=== PATIENT | male | born 1935 | race Caucasian/White ===

== ENCOUNTER 2019-09-30 06:35 | Day surgery (SDC) | payer OTHER ==
[2019-09-27 09:41] LABS: BASOPHILS % (AUTO) 0.8 % (0-1); EOSINOPHILS # (AUTO) 0.3 X10'3 (0-0.9); EOSINOPHILS % (AUTO) 4.6 % (0-6); LYMPHOCYTES # (AUTO) 1.1 X10'3 (1.1-4.8); LYMPHOCYTES % (AUTO) 19.8 % (21-51); MEAN CORPUSCULAR HEMOGLOBIN 31.8 PG (27.0-31.0); MEAN CORPUSCULAR HGB CONC 33.9 g/dL (33.0-36.5); MEAN CORPUSCULAR VOLUME 93.6 FL (78-98); MEAN PLATELET VOLUME 7.5 FL (7.4-10.4); MONOCYTES # (AUTO) 0.7 X10'3 (0-0.9); MONOCYTES % (AUTO) 11.6 % (2-12); NEUTROPHILS # (AUTO) 3.6 X10'3 (1.8-7.7); NEUTROPHILS % (AUTO) 63.2 % (42-75); PRE OP HEMATOCRIT 46.8 % (42.0-52.0); PRE OP HEMOGLOBIN 15.9 g/dL (14.0-17.9); PRE OP PLATELET COUNT 234 X10'3 (140-440); RED CELL DISTRIBUTION WIDTH 13.6 % (11.5-14.5)
[2019-09-27 09:56] LABS: ALBUMIN 3.6 G/DL (3.4-5.0); ALKALINE PHOSPHATASE 92 IU/L (46-116); BLOOD UREA NITROGEN 18 MG/DL (7-18); BUN/CREATININE RATIO 16.4 (5.4-32.0); CALCIUM 9.6 MG/DL (8.5-10.1); CHLORIDE 104 MMOL/L (99-107); PRE OP ALT 44 U/L (30-65); PRE OP ANION GAP 6 (8-16); PRE OP AST 39 U/L (10-37); PRE OP BILIRUB, TOTAL 0.8 MG/DL (0.0-1.0); PRE OP GLUCOSE 98 MG/DL (70-104); PRE OP POTASSIUM 4.6 MMOL/L (3.4-5.1); PRE OP SODIUM 140 MMOL/L (135-145); TOTAL CARBON DIOXIDE 30.1 MMOL/L (24-32); TOTAL PROTEIN 7.2 G/DL (6.4-8.2); eGFR 64 ML/MIN
[2019-09-30] VITALS (7 sets, daily range): BP systolic 129–137; BP diastolic 80–95
[~2019-09-30] VITALS: Ht 177.8 cm; Wt 73.0 kg
[~2019-09-30 06:35] MED LIST: ASPI-611 PO; ATOR80TA PO; ENAL2.5T PO; GABA-532 PO; cefazolin/dext.iso 2gm/100ml 100 ML IV ONE; famotidine 20mg tablet PO ONE; ringers solution, lacted 1,000 ML IV SCH
[2019-09-30] MEDS ORDERED: LIDOcaine 1% 30ml preserv. free vial ONE (08:07)
[2019-09-30] MEDS ORDERED: ringers solution, lacted 1,000 ML IV SCH (08:46)
[2019-09-30] MEDS ORDERED: morphine 4 MG/ML inj SYRINge IV PRN ×2 (08:50)
[2019-09-30] MEDS ORDERED: meperidine/PF 25mg/ml syringe IV PRN ×3 (08:50)
[2019-09-30] MEDS ORDERED: ondansetron/PF 4mg/2ml inj IV PRN (08:50)
[2019-09-30] MEDS ORDERED: proCHLORperazine 10 MG/2 ml inj IV PRN (08:50)
[2019-09-30] MEDS ORDERED: BUPIVAcaine/PF 2.5mg/ml (0.25%) 10ml vial ONE (09:30)
[2019-09-30] MEDS ORDERED: midazolam 2 mg/2 ml injection ONE (09:38)
[2019-09-30] MEDS ORDERED: fentaNYL/PF 50MCG/1 ML 2ML syringe ONE (09:38)
--- NOTE | 2019-09-30 10:12 | NUR ---
Received from OR via [facility], accompanied by Anesthesiologist DR FRIAS and report given by Anesthesiologist. PT AWAKE, DENIES PAIN, RIGHT THUMB W/BIAS WRAP AND FOAM TAPE COVERING INCISION CDI. 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 Addendum: 09/30/19 at 1028 by Jo-Ann Linda RN Amended: Links added.
[2019-09-30] MEDS ORDERED: ketorolac trometh. 30mg/ml inj. ONE (10:33)
--- NOTE | 2019-09-30 11:12 | NUR ---
D/C INSTRUCTIONS GIVEN AND GONE OVER W/PT AND PTS S/O, BOTH VERBALIZED UNDERSTANDING, PT D'CD TO HOME VIA W/C TO PRIVATE VEHICLE W/O INCIDENT. Addendum: 09/30/19 at 1123 by Jo-Ann Linda RN Amended: Links added.
== END 2019-09-30 11:12 | disposition home or self-care (01) ==
LOC: PAS 06:35
PROVIDERS: ATTEND Orthopaedic Surgery Hand Surgery
DX: T84.89XA Other specified complication of internal orthopedic prosthetic devices, implants and grafts, initial encounter (principal); I10 Essential (primary) hypertension; Z98.890 Other specified postprocedural states; Z87.891 Personal history of nicotine dependence; Z79.899 Other long term (current) drug therapy; Y83.8 Other surgical procedures as the cause of abnormal reaction of the patient, or of later complication, without mention of misadventure at the time of the procedure; Y92.89 Other specified places as the place of occurrence of the external cause
CPT/HCPCS: 20680; 36415; 80053; 82948; 85025; 93005; A6222; J1885; J2001; J2250; J3010; J3490; A4215; J7120